=== PATIENT | male | born 1970 | race Caucasian/White ===

== ENCOUNTER 2016-06-24 10:01 | Emergency (ER) | payer OTHER ==
[2016-06-24 10:13] VITALS: BP 132/64
--- NOTE | 2016-06-24 10:46 | UC ---
General HPI - HPI Summary HPI Summary: Right arm pain for 3 weeks after moving heavy objects. 3 days of waking up with vertigo, has had vertigo in the past, says it comes and oges, he thinks it was triggered by sinus congestion. denies any fever. - History of Current Complaint Chief Complaint: UCRespiratory Stated Complaint: VERTIGO Time Seen by Provider: 06/24/16 10:33 Hx Obtained From: Patient Onset/Duration: Sudden Onset, Lasting Days Timing: Constant Onset Severity: Mild Current Severity: Mild Pain Intensity: 0 - no pain, dizzy Associated Signs & Symptoms: Positive: Dizziness - Allergy/Home Medications Allergies/Adverse Reactions: Allergies Allergy/AdvReac Type Severity Reaction Status Date / Time No Known Allergies Allergy Verified 06/24/16 10:12 Home Medications: Home Medications ValACYclovir (*) [Valtrex 500 mg (*)] 500 mg PO DAILY 06/24/16 [History Confirmed 06/24/16] PMH/Surg Hx/FS Hx/Imm Hx Previously Healthy: Yes - Surgical History Surgical History: None - Family History Known Family History: Positive: Cardiac Disease, Hypertension - Social History Alcohol Use: Occasionally Substance Use Type: None Smoking Status (MU): Never Smoked Tobacco Review of Systems Constitutional: Negative Skin: Negative Eyes: Negative ENT: Negative Respiratory: Negative Cardiovascular: Negative Gastrointestinal: Negative Genitourinary: Negative Motor: Negative Neurovascular: Negative Musculoskeletal: Myalgia Neurological: Other - room is spinning at times, like this morning Psychological: Negative All Other Systems Reviewed And Are Negative: Yes Physical Exam Triage Information Reviewed: Yes Appearance: Well-Appearing, Well-Nourished, Pain Distress Vital Signs: Initial Vital Signs Temp 98.1 F 06/24/16 10:09 Pulse 74 06/24/16 10:09 Resp 14 06/24/16 10:09 BP 132/64 06/24/16 10:09 Pulse Ox 98 06/24/16 10:09 Vital Signs Reviewed: Yes Eye Exam: Normal Eyes: Positive: Conjunctiva Clear ENT Exam: Normal ENT: Positive: Pharynx normal, Nasal congestion, TM bulging Dental Exam: Normal Neck exam: Normal Neck: Positive: Supple, Nontender, No Lymphadenopathy Respiratory Exam: Normal Respiratory: Positive: Chest non-tender, Lungs clear, Normal breath sounds Cardiovascular Exam: Normal Cardiovascular: Positive: RRR, No Murmur, Pulses Normal Abdominal Exam: Normal Abdomen Description: Positive: Nontender, No Organomegaly, Soft Bowel Sounds: Positive: Present Musculoskeletal Exam: Normal Musculoskeletal: Positive: Strength Intact, ROM Intact, No Edema Neurological Exam: Normal Neurological: Positive: Alert, Muscle Tone Normal, Other: - PERRLA, neg Rhomberg , cranial nerves intact, moves all extremities without difficulty, cannot reproduce the dizzyness at this time Psychological Exam: Normal Skin Exam: Normal Course/Dx - Course Course Of Treatment: history obtained, exam performed, neuro exam performed. given PRN meclizine. educated on exercises for vertigo to attempt. - Differential Dx - Multi-Symptom Provider Diagnoses: intermittent vertigo. sinus congestion. bicep strain Discharge - Discharge Plan Condition: Stable Disposition: HOME Patient Education Materials: Vertigo (ED) Additional Instructions: i have prescribed meclizine to use as needed for you vertigo. i recommend that you follow the directions for the exercises we talked about and increase your fluid intake to stay hydrated. rest the bicep and use ibuprofen for pain.
== END 2016-06-24 10:50 | disposition home or self-care (01) ==
LOC: UCCORT 10:01
DX: R42 Dizziness and giddiness (principal); R09.81 Nasal congestion; S46.211A Strain of muscle, fascia and tendon of other parts of biceps, right arm, initial encounter; X50.0XXA Overexertion from strenuous movement or load, initial encounter; Y93.89 Activity, other specified; Y92.9 Unspecified place or not applicable
CPT/HCPCS: 99202; G0463